=== PATIENT | male | born 1950 | race Caucasian/White ===

== ENCOUNTER → 2018-07-28 09:28 | Outpatient (CLI) | payer MEDICARE, MEDICAID, SELFPAY ==
[2018-07-28 12:25] LABS: Thyroid Stimulating Hormone 1.88 uIU/mL (0.47-4.68)
== END ==
PROVIDERS: PCP Physician Assistant; Visit Provider Physician Assistant
DX: E03.9 Hypothyroidism, unspecified (principal)
CPT/HCPCS: 36415; 84443

== ENCOUNTER 2018-12-07 08:21 | Day surgery (SDC) | payer MEDICARE, MEDICAID, SELFPAY ==
--- NOTE | 2018-12-07 | PATH_ITS ---
[facility] Accession Number: [id number] . 01 Material submitted: . POLYP NEAR HEPATIC FLEXURE . 02 Diagnosis: Colon, Near Hepatic Flexure, Polyp: Colonic mucosa with no diagnostic abnormality, consistent with polypoid redundancy. Negative for serrated lesion, dysplasia or malignancy. Additional step sections examined. V/12/09/2018 . 02 Electronically signed: . Lenny Ca MD, PhD, Pathologist NPI- [id number] . 01 Gross description: . Received one formalin-filled container labeled with the patient's name and labeled polyp at hepatic flexure. The specimen consists of multiple fragments of tissue and/or debris which range in size from less than 0.1 cm to 0.2 cm in greatest dimension. The contents of the container are filtered, wrapped, and entirely submitted in one cassette. ([id number]) /FRR . 02 Pathologist provided ICD-10: K63.5 . 02 CPT . 116239 Performed at: 01 [facility] [address] [facility], [place], [place] [id number] MD Cristhian Hagan MD Phone: [phone] Performed at: 02 [facility] [address] [place], [place] [id number] MD Oneyda Mcfarland MD Phone: [phone]
[2018-12-07 08:49] VITALS: BP 121/72; PULSE 60; RESP 16; TEMP 36.2; O2SAT 96; BMI 35.8
[2018-12-07] MEDS: SODIUM CHLORIDE 0.9% 1,000 ML 200 ML IV (09:00)
--- NOTE | 2018-12-07 09:12 | PM.HP.1 ---
History of Present Illness Date Patient Seen: 12/07/18 Time Patient Seen: 09:12 Chief complaint: colonoscopy 28817 Narrative: Patient is a gentleman who is here for screening colonoscopy. His last exam was 10 years ago. Patient History Medical History Elevated cholesterol (Chronic) Hypothyroid (Chronic) Social History household members: significant other Family & Social History Social History: household members significant other Meds Home Medications Medication Instructions Recorded Confirmed Type ASPIRIN (#ASPIR 81) #0 03/23/12 History aspirin [Aspirin Low Dose] 81 mg PO DAILY 12/07/18 12/07/18 History atorvastatin 20 mg PO BEDTIME 12/07/18 12/07/18 History levothyroxine 88 mcg PO DAILY 12/07/18 12/07/18 History Allergies Allergy/AdvReac Type Severity Reaction Status Date / Time No Known Drug Allergies Allergy Verified 12/07/18 08:57 Review of Systems Review of Systems All systems reviewed & are unremarkable except as noted in HPI and below Exam Vital Signs (past 8 hours): - 12/07/18 08:49 Temperature 97.2 F L Pulse Rate 60 Respiratory Rate 16 Blood Pressure 121/72 Pulse Oximetry 96 Oxygen Delivery Method Room Air Narrative Exam Narrative: Co operative pleasant gentleman no apparent distress. Lungs are clear to auscultation no rales or rhonchi. Heart regular rate and rhythm no murmur gallop. Abdomen is soft nontender without masses. Liver and spleen are not enlarged. He is alert and oriented x3. Assessment & Plan Plan: Assessment/Plan Narrative: For screening colonoscopy. I have discussed the procedure and the rationale with the patient including risks of bleeding, perforation which would necessitate a major operation, failure to find remove all lesions and the potential to tattoo. They appeared to understand and wished to proceed.
--- NOTE | 2018-12-07 09:17 | PM.PREOP ---
Pre-operative Note Interval Note History & Physical reviewed/Exam performed by Physician: Yes Changes to H&P: No ASA Class (for procedural sedation): II
[2018-12-07] MEDS: fentaNYL 250 MCG/5 ML INJ IV (09:52)
[2018-12-07] MEDS: MIDAZOLAM 5 MG/5 ML VIAL IV (09:53)
--- NOTE | 2018-12-07 09:53 | PM.OP.ENDO ---
Operative Date/Time/Diagnoses Date of procedure: 12/07/18 Time of procedure: 09:53 Pre-op diagnosis: Screening exam. Personal history of polyps. Last exam 10 years ago. Post-op diagnosis: same (Polyp transverse colon. Sigmoid diverticulosis.) Procedure & Clinicians Study performed: Colonoscopy with hot snare polypectomy Same procedure as scheduled: Yes Indications: Screening Surgeon: Kendrick Heart Procedure Notes SCOAP/Timeout: Performed Procedure in detail: The patient was placed in the left lateral decubitus position and underwent IV sedation directed by the surgeon consisting of fentanyl and Versed. Digital exam was remarkable for an enlarged prostate.. The scope was inserted and advanced through the rectum into the sigmoid, descending, transverse, and ascending colon. The polyp seen in what turned out to be the transverse colon. It was snared and removed with a hot snare. I was unable to retrieve it however. It was less than a cm and benign in appearance. The cecum was reached identified by the ileocecal valve and the appendiceal opening. The scope was gradually brought out. No other Polyps were found. Despite carefully looking for the polyp that I snared I was unsuccessful in finding it. The scope ultimately was retroflexed in the rectum. The appearance was[normal]. The scope was removed and the patient tolerated the procedure well. Prep was adequate. Scope withdrawal time: 10 min Sedation minutes: 31 Findings: diverticulosis and polyp (Not able to be retrieved) Recommendations: Colonscopy in 5 years Follow up: as needed Disposition: same day surgery
[2018-12-07 10:00] VITALS: BP 129/71; PULSE 58; RESP 16; TEMP 37.1; O2SAT 96
== END 2018-12-07 10:15 | disposition home or self-care (01) ==
PROVIDERS: PCP Physician Assistant; Visit Provider Specialist
PROC: 0DJD8ZZ Inspection of Lower Intestinal Tract, Via Natural or Artificial Opening Endoscopic (ICD-10-PCS; CPT 45378; principal; 2018-12-07 09:45)
DX: Z86.010 Personal history of colon polyps (principal); K57.30 Diverticulosis of large intestine without perforation or abscess without bleeding; D12.3 Benign neoplasm of transverse colon; E78.00 Pure hypercholesterolemia, unspecified; E03.9 Hypothyroidism, unspecified
CPT/HCPCS: 45385; 88305; 99152; 99153; J2250; J3010

== ENCOUNTER 2019-10-20 23:43 | Emergency (ER) | payer MEDICARE, MEDICAID, SELFPAY ==
--- NOTE | 2019-10-20 23:54 | DI.RAD.S_ITS ---
PROCEDURE: XR SHOULDER LT MIN 2V INDICATIONS: Fall with pain to left shoulder TECHNIQUE: 2 views of the shoulder were acquired. COMPARISON: None. FINDINGS: Bones: No fractures but there is an anterior subcoracoid left shoulder dislocation. No suspicious bony lesions. Visualized ribs appear intact. Soft tissues: No suspicious soft tissue calcifications. IMPRESSION: Anterior dislocation left shoulder without fracture seen. Dictated by: Jas Taylor M.D. on 10/21/2019 at 8:38 Approved by: Jas Taylor M.D. on 10/21/2019 at 8:39
[2019-10-20 23:55] VITALS: BP 174/90; PULSE 58; RESP 19; TEMP 36.6; O2SAT 100; BMI 35.5
[2019-10-21] VITALS (9 sets, daily range): BP systolic 105–153; BP diastolic 64–100; PULSE 68–79; RESP 13–19; O2SAT 96–99
--- NOTE | 2019-10-21 00:31 | ED.GENADULT ---
HPI - General Adult General Chief complaint: Extremity Injury, Upper Stated complaint: DISLOCATED LEFT SHOULDER Time Seen by Provider: 10/21/19 00:12 Source: patient Mode of arrival: Family Vehicle Limitations: no limitations History of Present Illness HPI narrative: 69-year-old male here for evaluation of left shoulder injury. Patient states that he slipped on a wet deck falling forward on his hands. Since then has had pain in his left shoulder. Has dislocated his shoulder in the past but that was many years ago when he was in his 20s. Her injuries reported from the event. Related Data Home Medications Medication Instructions Recorded Confirmed ASPIRIN (#ASPIR 81) #0 03/23/12 aspirin [Aspirin Low Dose] 81 mg PO DAILY 12/07/18 12/07/18 atorvastatin 20 mg PO BEDTIME 12/07/18 12/07/18 levothyroxine 88 mcg PO DAILY 12/07/18 12/07/18 Allergies Allergy/AdvReac Type Severity Reaction Status Date / Time No Known Drug Allergies Allergy Verified 12/07/18 08:57 Review of Systems Constitutional Constitutional: Denies frequent falls and Denies headache(s) ENT Ears, Nose, Mouth, and Throat: Denies headache(s) and Denies disequilibrium Cardiovascular Cardiovascular: Denies chest pain and Denies dyspnea Respiratory Respiratory: Denies dyspnea Gastrointestinal Gastrointestinal: Denies abdominal pain Musculoskeletal Comments: Left shoulder pain Integumentary/Breasts Skin/Breast: Denies lesions and Denies rash Neurologic Neurologic: Denies frequent falls, Denies headache(s), Denies paresthesias and Denies disequilibrium Hematologic/Lymphatic Hematologic/Lymphatic: Denies easy bleeding and Denies easy bruising Patient History Medical History Elevated cholesterol (Chronic) Hypothyroid (Chronic) Social History household members: significant other Substance Use Type: marijuana Exam Initial Vital Signs Initial Vital Signs: Vital Signs Temperature 97.9 F 10/20/19 23:55 Pulse Rate 58 L 10/20/19 23:55 Respiratory Rate 10/20/19 23:55 Blood Pressure 174/90 H 10/20/19 23:55 Pulse Oximetry 100 10/20/19 23:55 Const General: cooperative and comfortable Orientation: alert, awake and oriented x3 HENMT Head: normal to inspection and normocephalic Resp Effort & Inspection: normal respiratory effort Cardio Rate: regular rate Back/Spine/Pelvis Cervical Spine: No collar present and No cervical spinal tenderness Skin Lesions: no lesions Rashes: no rashes Neuro Sensory Exam: no sensory deficits noted Other: Sensation intact over the lateral deltoid Extrem Other: Left hand, left wrist, left forearm, left elbow unremarkable. Patient has obvious deformity consistent with dislocation left shoulder. Procedures Orthopedic Joint Reduction Joint #1: Time Out Performed: Yes Side: left Joint Reduction Location: shoulder Analgesia: procedural sedation Shoulder Technique Used (if applicable): Milch Post-reduction neuro exam: intact and no change Post-reduction vascular: intact and no change Post Reduction X-Ray Obtained: Yes Post Reduction X-Ray Results: reduced Splint Applied: Yes (Sling) Patient Tolerated Procedure: Well and No complications Orthopedic Splinting/Casting Injury #1: Side: left Upper Extremity Injury Location: shoulder Upper Extremity Immobilizer: sling/shoulder immobilizer Post splinting neuro exam: no change Post splinting vascular exam: no change Placed by: Provider Procedural Sedation Patient Age: Patient is 5yrs or older Consent signed: Yes Time out performed: Yes Indication: fracture/dislocation reduction ASA Class: II Mallampati Airway Classification: Class II Preparation: cardiac rehab nurse applied, pulse oximeter, capnometry used, supplemental O2 applied and suction/airway equipment at bedside IV Propofol dose (mg): 200 ED Sedation Level: Minimal Patient Tolerated Procedure: Well and No complications Complications: none Course Orders Ordered: ED Orders 10/20/19 23:54 XR shoulder LT min 2V Stat 10/21/19 00:32 RT Consult Eval and Treat Now 10/21/19 01:02 XR shoulder LT min 2V Stat Discontinued Medications Propofol (Diprivan) 100 mg IV NOW ONE Stop: 10/21/19 00:32 Last Admin: 10/21/19 01:05 Dose: 100 mg Documented by: LIS Propofol (Diprivan) 100 mg IV NOW ONE Stop: 10/21/19 01:33 Last Admin: 10/21/19 01:10 Dose: 100 mg Documented by: LIS Tramadol HCl (Ultram 50mg Prepack) 1 bottle MISC SEEINSTR ONE Stop: 10/21/19 01:57 Last Admin: 10/21/19 02:02 Dose: 1 bottle Documented by: LIS Vital Signs Vital signs: Vital Signs - 8 hr 10/20/19 23:55 10/21/19 00:43 10/21/19 01:05 Temperature 97.9 F Pulse Rate 58 L 70 68 Respiratory Rate 19 15 18 Blood Pressure 174/90 H Blood Pressure [Right Arm] 153/79 H Pulse Oximetry 100 99 98 10/21/19 01:10 10/21/19 01:15 10/21/19 01:20 Temperature Pulse Rate 77 78 79 Respiratory Rate 13 15 15 Blood Pressure Blood Pressure [Right Arm] 129/74 105/66 117/68 Pulse Oximetry 96 99 96 10/21/19 01:25 10/21/19 01:30 10/21/19 01:35 Temperature Pulse Rate 71 70 70 Respiratory Rate 18 19 15 Blood Pressure Blood Pressure [Right Arm] 117/64 112/100 H Pulse Oximetry 96 96 98 10/21/19 01:40 Temperature Pulse Rate 71 Respiratory Rate 15 Blood Pressure Blood Pressure [Right Arm] 123/70 Pulse Oximetry 98 Medical Decision Making Imaging Data Shoulder x-ray: Attestation: I personally reviewed and interpreted this imaging study as follows: My impression: Anterior dislocation without fracture Postreduction x-ray: Attestation: I personally reviewed and interpreted this imaging study as follows: My impression: Successful reduction of the dislocation without fracture MDM Narrative Medical decision making narrative: Patient with history and physical and x-ray findings consistent with a left shoulder dislocation. He was neurovascularly intact. Initially attempted the cutting hand technique however after an extended period of time we were unsuccessful at reduction. We did discuss the use of sedation. The consent was signed. Patient was initially given 50 mg of propofol and then aliquots added smaller amounts up to a total 200 mg before he became adequately sedated and relaxed. The shoulder then reduced without any problems using the Milch technique. Patient was placed in a sling. We did discuss return precautions and follow-up instructions. He expressed understanding and agreement plan. Discharge Plan Departure Patient Disposition: Home Clinical Impression: Dislocation of left shoulder joint Qualifiers: Encounter type: initial encounter Qualified Code(s): S43.005A - Unspecified dislocation of left shoulder joint, initial encounter Discharge Date/Time: 10/21/19 02:19 Instructions: DI for Shoulder Dislocation Activity Restrictions/Additional Instructions: Use the sling as needed and like we discussed. Avoid the positions of your shoulder like we discussed. Tomorrow contact your primary provider to discuss the indications for referral to see physical therapy. You can shower like normal. Return to the emergency department for any new or worsening symptoms Prescriptions: No Action ASPIRIN (#ASPIR 81) Qty: 0 RF: 0 atorvastatin 20 mg Tablet 20 mg PO BEDTIME RF: 0 aspirin [Aspirin Low Dose] 81 mg Tablet,Delayed Release (Dr/Ec) 81 mg PO DAILY RF: 0 levothyroxine 88 mcg Capsule 88 mcg PO DAILY RF: 0
--- NOTE | 2019-10-21 01:02 | DI.RAD.S_ITS ---
PROCEDURE: XR SHOULDER LT MIN 2V INDICATIONS: post reduction TECHNIQUE: 3 views of the shoulder were acquired. COMPARISON: [facility], CR, XR SHOULDER LT MIN 2V, 10/21/2019, 0:00. FINDINGS: Bones: No fractures or dislocations. No suspicious bony lesions. Visualized ribs appear intact. Soft tissues: No suspicious soft tissue calcifications. IMPRESSION: Successful reduction of left anterior subcoracoid shoulder joint dislocation seen earlier this evening. Dictated by: Jas Taylor M.D. on 10/21/2019 at 8:39 Approved by: Jas Taylor M.D. on 10/21/2019 at 8:39
[2019-10-21] MEDS: PROPOFOL 200 MG/20 ML VIAL 100 MG IV ×2 (01:05→01:10)
[2019-10-21] MEDS: TRAMADOL 50 MG PREPACK 1 BOTTLE MISC (02:02)
== END 2019-10-21 02:19 | disposition home or self-care (01) ==
PROVIDERS: Emergency Provider Emergency Medicine
DX: S43.005A Unspecified dislocation of left shoulder joint, initial encounter (principal); W01.0XXA Fall on same level from slipping, tripping and stumbling without subsequent striking against object, initial encounter
CPT/HCPCS: 23655; 73030; 99283; 99285; 99291; J2704

== ENCOUNTER 2019-10-23 10:33 | Emergency (ER) | payer MEDICARE, MEDICAID, SELFPAY ==
[2019-10-23] VITALS (10 sets, daily range): BP systolic 120–184; BP diastolic 54–91; PULSE 56–64; RESP 16–20; TEMP 36.3; O2SAT 95–99; BMI 35.8
--- NOTE | 2019-10-23 10:43 | DI.RAD.S_ITS ---
PROCEDURE: XR SHOULDER LT MIN 2V INDICATIONS: possible dislocation TECHNIQUE: 2 views of the shoulder were acquired. COMPARISON: [facility], CR, XR SHOULDER LT MIN 2V, 10/21/2019, 1:07. FINDINGS: Bones: There is anterior dislocation of the left humeral head. No other fractures or dislocations visualized. Soft tissues: No suspicious soft tissue calcifications. IMPRESSION: Anterior dislocation of the left humeral head. Dictated by: Iris Sharma M.D. on 10/23/2019 at 9:59 Approved by: Iris Sharma M.D. on 10/23/2019 at 9:59
--- NOTE | 2019-10-23 11:08 | ED_ITS ---
HPI - Extremity Injury (Upper) General Chief Complaint: Extremity Injury, Upper Stated Complaint: dislocated left shoulder Time Seen by Provider: 10/23/19 10:41 Source: patient Mode of arrival: Wheelchair History of Present Illness HPI narrative: Patient is a 69-year-old male who presents with left shoulder dislocation. He was seen evaluated here on 10/21/2019 for the same. He is not had previous left shoulder dislocations in his 20s but none recently. It was reduced in the emergency department that day he has been doing well. Today he was trying to lift a hot tub cover off with his right hand and he must have moved to his left. He shoulder read dislocated he denies any numbness or tingling. No other injury. MD complaint: injury to: left Related Data Home Medications Medication Instructions Recorded Confirmed ASPIRIN (#ASPIR 81) #0 03/23/12 aspirin [Aspirin Low Dose] 81 mg PO DAILY 12/07/18 12/07/18 atorvastatin 20 mg PO BEDTIME 12/07/18 12/07/18 levothyroxine 88 mcg PO DAILY 12/07/18 12/07/18 Previous Rx's Medication Instructions Recorded tramadol 50 mg PO Q6H PRN #10 tab 10/23/19 Allergies Allergy/AdvReac Type Severity Reaction Status Date / Time No Known Drug Allergies Allergy Verified 10/23/19 10:41 Review of Systems Review of Systems Narrative: GENERAL: Denies chills,fever HEENT: Denies throat pain RESPIRATORY: Denies dyspnea, cough, wheezing CARDIOVASCULAR: Denies chest pain, palpitations GASTROINTESTINAL: Denies nausea, vomiting MUSCULOSKELETAL: See HPI SKIN: No rash, no laceration, no pruritus NEUROLOGIC: Denies weakness, dizziness, headache, numbness 8 point review of systems is negative except for those stated above and HPI Patient History Medical History Elevated cholesterol (Chronic) Hypothyroid (Chronic) Social History household members: significant other Substance Use Type: marijuana Exam Initial Vital Signs Initial Vital Signs: Vital Signs Temperature 97.3 F L 10/23/19 10:42 Pulse Rate 64 10/23/19 10:42 Respiratory Rate 16 10/23/19 10:42 Blood Pressure 154/91 H 10/23/19 10:42 Pulse Oximetry 95 12/22/19 10:42 GENERAL: Well-appearing, well-nourished and in no acute distress. CARDIOVASCULAR: peripheral pulses in tact, cap refill <2 sec RESPIRATORY: No respiratory distress, speaks in full sentences without difficulty EXTREMITIES: Normal range of motion, no clubbing or edema. Neurovascularly intact Left shoulder deformity step-off noted NEUROLOGICAL: Cranial nerves II through XII grossly intact. Normal gait and speech. SKIN: Warm, dry, no petechiae, no rashes or lesions. Procedures Orthopedic Joint Reduction Joint #1: Time Out Performed: Yes Side: left Joint Reduction Location: shoulder Analgesia: procedural sedation Shoulder Technique Used (if applicable): external rotation Technique used: traction/counter-traction Post-reduction neuro exam: intact Post-reduction vascular: intact Post Reduction X-Ray Obtained: Yes Post Reduction X-Ray Results: reduced Splint Applied: Yes Patient Tolerated Procedure: Well Orthopedic Splinting/Casting Injury #1: Side: left Upper Extremity Injury Location: shoulder Upper Extremity Immobilizer: sling/shoulder immobilizer Post splinting neuro exam: intact Post splinting vascular exam: intact Placed by: Provider Procedural Sedation Patient Age: Patient is 5yrs or older Consent signed: Yes Time out performed: Yes Indication: fracture/dislocation reduction ASA Class: III Mallampati Airway Classification: Class II Preparation: cardiac cath lab radiology technologist applied and IV secured IV Propofol dose (mg): 100 IV Etomidate dose (mg): 10 Intraservice time/total sedation time (min): 18 ED Sedation Level: Moderate (Concious) Complications: hypoventilation Interventions: Airway repositioned Additional Comments: Patient required further sedation initially tolerating given propofol then given. He did require jaw thrust maneuver for hypo ventilation. He overall tolerated procedure well. Course Orders Ordered: ED Orders 10/23/19 10:43 XR shoulder LT min 2V Stat 10/23/19 11:53 XR shoulder LT min 2V Stat Discontinued Medications Etomidate (Amidate) 10.1 mg 0.1 mg/kg (10.1 mg) IV NOW ONE Stop: 10/23/19 11:12 Last Admin: 10/23/19 11:39 Dose: 10.1 mg Documented by: JOSE MIGUEL Hydromorphone HCl (Dilaudid) 0.5 mg IV NOW ONE Stop: 10/23/19 11:12 Last Admin: 10/23/19 11:40 Dose: Not Given Documented by: JOSE MIGUEL Vital Signs Vital signs: Vital Signs - 8 hr 10/23/19 10:42 10/23/19 11:30 10/23/19 11:35 Temperature 97.3 F L Pulse Rate 64 57 L Pulse Rate [Left Radial] 62 Respiratory Rate 16 18 Blood Pressure 154/91 H Blood Pressure [Right Arm] 184/73 H Pulse Oximetry 95 95 10/23/19 11:45 10/23/19 11:50 10/23/19 11:55 Temperature Pulse Rate 56 L 56 L 56 L Pulse Rate [Left Radial] Respiratory Rate 20 20 16 Blood Pressure Blood Pressure [Right Arm] 146/72 H 142/72 H 136/54 L Pulse Oximetry 99 96 99 10/23/19 12:00 10/23/19 12:01 10/23/19 12:10 Temperature Pulse Rate 60 56 L 58 L Pulse Rate [Left Radial] Respiratory Rate 17 16 18 Blood Pressure Blood Pressure [Right Arm] 122/78 120/67 Pulse Oximetry 95 98 95 10/23/19 12:52 Temperature Pulse Rate 60 Pulse Rate [Left Radial] Respiratory Rate 19 Blood Pressure Blood Pressure [Right Arm] 137/69 Pulse Oximetry 98 MDM - Extremity Injury (Upper) MDM Narrative Medical decision making narrative: Patient is placed in a sling. Recommend outpatient follow-up with Orthopedics. He is overall feeling better now that shoulder is reduced. Discharge Plan Departure Patient Disposition: Home Clinical Impression: Hill Sachs deformity, left Dislocation of left shoulder joint Qualifiers: Encounter type: initial encounter Qualified Code(s): S43.005A - Unspecified dislocation of left shoulder joint, initial encounter Discharge Date/Time: 10/23/19 13:22 Instructions: DI for Shoulder Dislocation Activity Restrictions/Additional Instructions: *You have been diagnosed with left shoulder dislocation *What to do: Keep arm in sling for the next 1-2 days. DO NOT LIFT ARM ABOVE HEAD. You need to follow-up with orthopedics call orthopedics tomorrow to schedule appointment. You have a small fracture known as Hill-Sachs, which is very common with dislocated shoulders this should heal on its own *Continue to take medications as directed Tramadol 1 tablet every 6 hours if needed for severe pain *Follow up with your primary care provider in 2-3 days [and follow up with ortho, urology etc] *Return to ER if you should have [such as] [or] any new, worsening or concerning symptoms Prescriptions: New tramadol 50 mg tablet 50 mg PO Q6H PRN (Reason: pain) Qty: 10 RF: 0 No Action ASPIRIN (#ASPIR 81) Qty: 0 RF: 0 atorvastatin 20 mg Tablet 20 mg PO BEDTIME RF: 0 aspirin [Aspirin Low Dose] 81 mg Tablet,Delayed Release (Dr/Ec) 81 mg PO DAILY RF: 0 levothyroxine 88 mcg Capsule 88 mcg PO DAILY RF: 0 Referrals: [facility] [Provider Group] Cassy Larson MD [Non-Staff] -
[2019-10-23] MEDS: ETOMIDATE 2 MG/ML 10 ML VIAL 10.1 MG IV (11:39)
[2019-10-23] MEDS: PROPOFOL 200 MG/20 ML VIAL IV (11:45)
--- NOTE | 2019-10-23 11:53 | DI.RAD.S_ITS ---
PROCEDURE: XR SHOULDER LT MIN 2V INDICATIONS: shoulder reduction TECHNIQUE: 2 views of the shoulder were acquired. COMPARISON: [facility], CR, XR SHOULDER LT MIN 2V, 10/23/2019, 10:40. FINDINGS: Bones: Patient is status post reduction of the anterior left humeral head dislocation. A Hill-Sachs deformity is noted. Soft tissues: No suspicious soft tissue calcifications. IMPRESSION: Status post reduction with Hill-Sachs deformity. Dictated by: Iris Sharma M.D. on 10/23/2019 at 11:29 Approved by: Iris Sharma M.D. on 10/23/2019 at 11:30
== END 2019-10-23 13:22 | disposition home or self-care (01) ==
PROVIDERS: Emergency Provider Emergency Medicine
DX: M24.412 Recurrent dislocation, left shoulder (principal)
CPT/HCPCS: 23655; 73030; 94770; 96374; 99283; 99284; J2704

== ENCOUNTER → 2019-11-09 10:28 | Outpatient (CLI) | payer MEDICARE, MEDICAID, SELFPAY ==
--- NOTE | 2019-11-09 | DI.MRI.S_ITS ---
PROCEDURE: MR SHOULDER LT W CON INDICATIONS: Left shoulder pain TECHNIQUE: After the administration of 12 mL of dilute intra-articular Gadolinium contrast, oblique coronal T1 and T2 spin echo with fat saturation, oblique sagittal T1 spin echo with and without fat saturation, oblique sagittal T2 fast spin echo with fat saturation, axial T1 spin echo with fat saturation through the shoulder. COMPARISON: None. FINDINGS: Image quality: Excellent. Rotator cuff: Tendinosis and low-grade articular and bursal surface partial-thickness tear involving distal supraspinatus and infraspinatus is seen extending to musculotendinous junction. Distal subscapularis tendinosis is also noted. Mild supraspinatus muscle atrophy is seen on sagittal images. Bones and bursae: Subacute-appearing Hill-Sachs deformity involving posterior lateral humeral head is seen with marrow edema and cortical defect. No corresponding Bankart fracture is noted. Moderate acromioclavicular joint and glenohumeral joint osteoarthritis is seen. Capsule and soft tissues: There is suggestion of superior anterior labral tear at the 12 to 2:00 position. There is also suggestion of anterior inferior labral tear at 4 to 6:00 position consistent with Bankart lesion. The glenohumeral ligaments appear intact. Tendinosis involving proximal intra-articular portion of long head of biceps is seen. The rotator interval appears normal, without fibrosis. The coracohumeral ligament is of normal thickness. No intra-articular bodies. IMPRESSION: 1. Subacute appearing Hill-Sachs deformity involving humeral head as above. No corresponding Bankart fracture. Moderate acromioclavicular joint and glenohumeral joint osteoarthritis. 2. Suggestion of superior anterior labral tear 12 to 2:00 position. There is also suggestion of a anterior inferior labral tear at 4 to 6:00 position consistent with Bankart lesion. 3. Tendinosis and low-grade articular and bursal surface partial-thickness tear involving the supraspinatus and infraspinatus. Distal subscapularis tendinosis. Mild supraspinatus muscle atrophy. Dictated by: Titus Mooney M.D. on 11/09/2019 at 14:36 Approved by: Titus Mooney M.D. on 11/09/2019 at 14:40
--- NOTE | 2019-11-09 | DI.RAD.S_ITS ---
PROCEDURE: FL SHOULDER INJECTION MR/CT LT INDICATIONS: Left shoulder pain TECHNIQUE: The indications, alternatives, benefits, risks, and complications of the procedure were explained to the patient. Written informed consent was obtained and placed in the chart. The shoulder was examined fluoroscopically and a site for needle placement chosen for entry into the glenohumeral joint from an anterior approach. The skin was prepped and draped in a sterile fashion, and 1% lidocaine infiltrated from skin down to joint capsule. A spinal needle was inserted into the glenohumeral joint, and a small amount of iodinated contrast media injected to confirm intra-articular placement of the needle tip. This was followed by approximately 12 mL dilute solution of a gadolinium containing MR contrast agent. The needle was removed and a dressing was applied. The patient was given postprocedural instructions and sent to the MR suite for MR imaging. FINDINGS: A single fluoroscopic spot image demonstrates intra-articular location of injected iodinated contrast. IMPRESSION: Successful fluoroscopically guided administration of dilute Gadolinium solution into the shoulder joint for MR arthrogram. Dictated by: Jas Taylor M.D. on 11/09/2019 at 13:38 Approved by: Jas Taylor M.D. on 11/09/2019 at 13:38
== END ==
PROVIDERS: PCP Internal Medicine; Visit Provider Orthopaedic Surgery
DX: M25.512 Pain in left shoulder (principal); M19.012 Primary osteoarthritis, left shoulder; M75.112 Incomplete rotator cuff tear or rupture of left shoulder, not specified as traumatic
CPT/HCPCS: 23350; 73222; 77002

== ENCOUNTER → 2020-06-09 14:18 | Outpatient (CLI) | payer MEDICARE, MEDICAID, SELFPAY ==
[2020-06-10 17:40] LABS: COVID19 Sendout Not Detected (Not Detect)
== END ==
PROVIDERS: PCP Internal Medicine; Visit Provider Physician Assistant
DX: Z11.59 Encounter for screening for other viral diseases (principal)
CPT/HCPCS: 87635

== ENCOUNTER 2020-06-12 06:48 | Day surgery (SDC) | payer MEDICARE, MEDICAID, SELFPAY ==
[2020-06-12 07:30] VITALS: BP 127/76; PULSE 53; RESP 16; TEMP 36.3; O2SAT 96; BMI 37.1
[2020-06-12] MEDS: PROPARACAINE 0.5% OPHTH SOL 2 DROPS EYE-OP (07:39)
[2020-06-12] MEDS: CATARACT EYE COMPOUND (10 DROPS/SYRINGE) 3 DROPS EYE-OP (07:43)
--- NOTE | 2020-06-12 08:35 | PM.PREOP ---
Pre-operative Note Interval Note History & Physical reviewed/Exam performed by Physician: Yes Changes to H&P: No
--- NOTE | 2020-06-12 08:35 | PM.OP.1 ---
Operative Date/Time/Diagnoses Pre-op diagnosis: Nuclear cataract right eye Procedure & Clinicians Procedure: Cataract Surgery Same procedure as scheduled: Yes Surgeon: Juliocesar Brasher Anesthesia Type: MAC +/- and Sedation Operative Notes Procedure in detail: Patient brought to the operating suite. Tetracaine drops placed in the right eye. Patient was prepped and draped in sterile manner. Wire lid speculum was placed in the eye. Betadine drops were placed on the eye. This was irrigated. Lidocaine jelly was placed on the eye. A paracentesis port was created with a side-port blade. 0.1 mL 1% preservative free lidocaine was injected into the anterior chamber. The anterior chamber was deepened with viscoelastic. 2.6 mm keratome was used to create a temporal clear corneal incision. Cystotome and Utrata forceps were used to create continuous tear capsulorrhexis. Balanced salt solution was used to hydro dissect the nucleus. The phacoemulsification handpiece was inserted and the nucleus was removed using the stop and chop technique. The irrigation aspiration handpiece was inserted and the remaining cortex was removed. Anterior chamber was deepened with viscoelastic. An Smith ZCB00 intraocular lens with a power of 19.0 was injected into the capsular bag. Irrigation aspiration handpiece was inserted and the remaining viscoelastic was removed. Incision was hydrated with balanced salt solution and found to be leak free with pressure with Weck-Sailaja sponges. 0.1 mL Vigamox injected anterior chamber. 0.3 mL Kenalog 10 mg was injected subconjunctivally. Lid speculum was removed. The patient left the operating room in excellent condition. Complications: none Post-operative Condition: stable Disposition: same day surgery
[2020-06-12] MEDS: PHENYLEPHRINE/LIDOCAINE VIAL (OR) 0.2 ML EYE-OP (08:53)
[2020-06-12] MEDS: MOXIFLOXACIN INJ 5 MG/ML VIAL EYE-OP (08:53)
[2020-06-12] MEDS: TRIAMCINOLONE 50 MG/5 ML VIAL INJ (08:54)
[2020-06-12] MEDS: CHONDROIDTIN/SOD HYALURONATE 1.05 ML SYRINGE INTRAOCULA (08:54)
[2020-06-12] MEDS: TETRACAINE 0.5% OPHTH DROPS 4 ML 2 DROPS EYE-OP (08:54)
[2020-06-12] MEDS: LIDOCAINE JELLY 2% 5 ML 1 APPLIC TOP (08:54)
[2020-06-12] MEDS: BALANCED SALT IRRIG SOLN NO.2 500 ML, EPINEPHrine 1 MG IRR (08:55)
[2020-06-12 09:07] VITALS: BP 123/65; PULSE 89; RESP 16; TEMP 36.4; O2SAT 96
== END 2020-06-12 09:24 | disposition home or self-care (01) ==
PROVIDERS: PCP Internal Medicine; Referring Provider Internal Medicine; Visit Provider Ophthalmology
PROC: (CPT 66984; principal; 2020-06-12 08:45)
DX: H25.11 Age-related nuclear cataract, right eye (principal); E78.5 Hyperlipidemia, unspecified
CPT/HCPCS: 66984; J0171; J2250; J3301

== ENCOUNTER → 2020-06-23 08:20 | Outpatient (CLI) | payer MEDICARE, MEDICAID, SELFPAY ==
[2020-06-24 19:19] LABS: COVID19 Sendout Not Detected (Not Detect)
== END ==
PROVIDERS: PCP Internal Medicine; Visit Provider Nurse Practitioner
DX: Z11.59 Encounter for screening for other viral diseases (principal)
CPT/HCPCS: 87635

== ENCOUNTER 2020-06-26 08:43 | Day surgery (SDC) | payer MEDICARE, MEDICAID, SELFPAY ==
[2020-06-26] MEDS: PROPARACAINE 0.5% OPHTH SOL 2 DROPS EYE-OP (09:59)
[2020-06-26 10:02] VITALS: BP 146/83; PULSE 55; RESP 18; TEMP 36.3; O2SAT 97; BMI 37.1
[2020-06-26] MEDS: CATARACT EYE COMPOUND (10 DROPS/SYRINGE) 3 DROPS EYE-OP (10:11)
--- NOTE | 2020-06-26 11:08 | P.OP_ITS ---
Operative Date/Time/Diagnoses Pre-op diagnosis: Nuclear Cataract Left eye Post-op diagnosis: same Procedure & Clinicians Same procedure as scheduled: Yes Surgeon: Juliocesar Brasher Anesthesia Type: MAC +/- and Sedation Operative Notes Procedure in detail: Patient brought to the operating suite. Tetracaine drops placed in the left eye. Patient was prepped and draped in sterile manner. Wire lid speculum was placed in the eye. Betadine drops were placed on the eye. This was irrigated. Lidocaine jelly was placed on the eye. A paracentesis port was created with a side-port blade. 0.1 mL 1% preservative free lidocaine was injected into the anterior chamber. The anterior chamber was deepened with viscoelastic. 2.6 mm keratome was used to create a temporal clear corneal incision. Cystotome and Utrata forceps were used to create continuous tear capsulorrhexis. Balanced salt solution was used to hydro dissect the nucleus. The phacoemulsification handpiece was inserted and the nucleus was removed using the stop and chop technique. The irrigation aspiration handpiece was inserted and the remaining cortex was removed. Anterior chamber was deepened with viscoe lastic. An Smith ZCB00 intraocular lens with a power of 18.0 was injected into the capsular bag. Irrigation aspiration handpiece was inserted and the remaining viscoelastic was removed. Incision was hydrated with balanced salt solution and found to be leak free with pressure with Weck-Sailaja sponges. 0.1 mL Vigamox injected anterior chamber. 0.3 mL Kenalog 10 mg was injected subconjunctivally. Lid speculum was removed. The patient left the operating room in excellent condition. Complications: none Post-operative Condition: stable Disposition: same day surgery
--- NOTE | 2020-06-26 11:08 | PM.PREOP ---
Pre-operative Note Interval Note History & Physical reviewed/Exam performed by Physician: Yes Changes to H&P: No
[2020-06-26] MEDS: TETRACAINE 0.5% OPHTH DROPS 4 ML 2 DROPS EYE-OP (11:28)
[2020-06-26] MEDS: PHENYLEPHRINE/LIDOCAINE VIAL (OR) 0.2 ML EYE-OP (11:28)
[2020-06-26] MEDS: LIDOCAINE JELLY 2% 5 ML 1 APPLIC TOP (11:28)
[2020-06-26] MEDS: TRIAMCINOLONE 50 MG/5 ML VIAL INJ (11:28)
[2020-06-26] MEDS: MOXIFLOXACIN INJ 5 MG/ML VIAL EYE-OP (11:28)
[2020-06-26] MEDS: CHONDROIDTIN/SOD HYALURONATE 1.05 ML SYRINGE INTRAOCULA (11:28)
[2020-06-26] MEDS: BALANCED SALT IRRIG SOLN NO.2 500 ML, EPINEPHrine 1 MG IRR (11:29)
[2020-06-26 11:51] VITALS: BP 124/76; PULSE 50; RESP 18; TEMP 36.2; O2SAT 96
== END 2020-06-26 11:52 | disposition home or self-care (01) ==
PROVIDERS: PCP Internal Medicine; Referring Provider Ophthalmology; Visit Provider Ophthalmology
PROC: (CPT 66984; principal; 2020-06-26 10:45)
DX: H25.12 Age-related nuclear cataract, left eye (principal); E78.5 Hyperlipidemia, unspecified; E66.9 Obesity, unspecified
CPT/HCPCS: 66984; J0171; J2250; J3301

== ENCOUNTER → 2021-01-02 09:12 | Outpatient (CLI) | payer MEDICARE, MEDICAID, SELFPAY ==
[2021-01-02 10:18] LABS: Add Manual Diff / Slide Review NO; Basophils Absolute Auto 100 /uL (0-100); Basophils Percent Auto 1.2 % (0-2); Eosinophils Absolute Auto 300 /uL (0-450); Eosinophils Percent Auto 6.6 % (2-4); Hematocrit 45.3 % (41-53); Hemoglobin 15.2 g/dL (13.5-17.5); Lymphocytes Absolute Auto 1700 /uL (1100-4500); Lymphocytes Percent Auto 35.3 % (25-40); Mean Corpuscular HGB Conc 33.6 % (30-36); Mean Corpuscular Hemoglobin 33.5 PG (26-34); Mean Corpuscular Volume 99.7 fL (80-100); Monocytes Absolute Auto 500 /uL (0-900); Monocytes Percent Auto 10.5 % (3-14); Neutrophils Absolute Auto 2200 /uL (1500-7000); Neutrophils Percent Auto 46.4 % (50-75); Platelet Count 158 X10^3/uL (150-400); Red Blood Cell Count 4.55 X10^6/uL (4.5-5.9); Red Cell Distribution Width 13.1 % (11.6-14.8); White Blood Cell Count 4.8 X10^3/uL (4.5-11.0)
[2021-01-02 10:21] LABS: Alanine Aminotransferase 26 IU/L (<50); Albumin 4.2 g/dL (3.5-5.0); Albumin Globulin Ratio 1.4 (1.0-2.8); Alkaline Phosphatase 74 U/L (38-126); Aspartate Aminotransferase 30 IU/L (17-59); BUN Creatinine Ratio 27.6 (6-22); Bilirubin Total 0.9 mg/dL (0.2-1.3); Blood Urea Nitrogen 21 mg/dL (9-20); Calcium 9.3 mg/dL (8.4-10.2); Carbon Dioxide 30 mmol/L (22-32); Chloride 105 mmol/L (98-107); Cholesterol 157 mg/dL (140-199); Estimated Glomerular Filt Rate > 60.0 mL/min (>60); Globulin 2.9 g/dL (1.7-4.1); Glucose 101 mg/dL (80-110); HDL Cholesterol 44 mg/dL (40-60); HEMOLYSIS < 15 (0-50); LDL Cholesterol Calculated 96 mg/dL (<100); Potassium 3.9 mmol/L (3.4-5.1); Sodium 139 mmol/L (137-145); Total Protein 7.1 g/dL (6.3-8.2); Triglycerides 87 mg/dL (35-150)
[2021-01-02 10:49] LABS: TSH w/ Reflex to FT4 0.54 uIU/mL (0.47-4.68)
[2021-01-02 10:51] LABS: Prostate Specific Antigen Scrn 0.952 ng/mL (0.1-4.0)
== END ==
PROVIDERS: PCP Internal Medicine; Referring Provider Internal Medicine; Visit Provider Internal Medicine
DX: M15.0 Primary generalized (osteo)arthritis (principal); E03.9 Hypothyroidism, unspecified; E78.2 Mixed hyperlipidemia; Z12.5 Encounter for screening for malignant neoplasm of prostate
CPT/HCPCS: 36415; 80053; 80061; 84443; 85025; G0103